=== PATIENT | male | born 1975 | race Hispanic/Latino ===

== ENCOUNTER → 2025-03-23 | Outpatient (CLI) | payer BC, SELFPAY ==
[2025-03-23 21:42] VITALS: PULSE 66; RESP 12
[2025-03-23 22:00] VITALS: PULSE 59; RESP 14
[2025-03-23 22:36] VITALS: PULSE 56; RESP 12
[2025-03-23 23:12] VITALS: PULSE 46; RESP 16
[2025-03-23 23:31] VITALS: PULSE 49; RESP 18
[2025-03-23 23:59] VITALS: PULSE 46; RESP 18
[2025-03-24] VITALS (11 sets, daily range): PULSE 51–66; RESP 12–17
== END | disposition home or self-care (01) ==
LOC: SLP 19:21
PROVIDERS: ATTEND Otolaryngology
DX: G47.33 Obstructive sleep apnea (adult) (pediatric) (principal); R06.83 Snoring
CPT/HCPCS: 95811